=== PATIENT | male | born 1990 | race Caucasian/White ===

== ENCOUNTER 2020-04-13 12:51 | Emergency (ER) | payer MEDICAID ==
[~2020-04-13] VITALS: Ht 165.1 cm; Wt 61.4 kg
[2020-04-13] MEDS ORDERED: KLON0.5T PO (13:03)
[2020-04-13] MEDS ORDERED: MIRA3350 PO (13:03)
[2020-04-13] MEDS ORDERED: COLA100C5 PO (13:03)
[2020-04-13] MEDS ORDERED: DEPA1TAB3 PO (13:03)
[2020-04-13] MEDS ORDERED: KEPP250T5 PO (13:03)
[2020-04-13] MEDS ORDERED: TOPA1TAB PO (13:03)
[2020-04-13] MEDS ORDERED: DEPA250T32 PO (13:03)
[2020-04-13] MEDS ORDERED: KEPP1TAB PO (13:03)
[2020-04-13] MEDS ORDERED: TOPA100T12 PO (13:03)
[2020-04-13] MEDS ORDERED: SERO1TAB3 PO (13:03)
[2020-04-13] MEDS ORDERED: KLON1TAB PO (13:03)
[2020-04-13] MEDS ORDERED: TRUL3TAB PO (13:03)
[2020-04-13] MEDS ORDERED: D3 +TAB PO (13:03)
[2020-04-13] MEDS ORDERED: LIDOCAINE 2% 5ML JELLY UROJET As Ordered ONE (13:32)
[2020-04-13] MEDS ORDERED: LIDOCAINE 2% 5ML JELLY UROJET TOP ONE (13:45)
[2020-04-13 14:11] LABS: BASO % 0.3 % (0.0-1.0); EOS # 0.1 10^3/uL (0.0-0.5); EOS % 0.9 % (0.0-3.0); HEMATOCRIT 39.8 % (42.0-52.0); HEMOGLOBIN 13.2 g/dl (13.5-17.5); LYMPH # 3.6 10^3/uL (1.5-5.0); LYMPH % 53.8 % (24.0-44.0); MEAN CORPUSCULAR HEMOGLOBIN 29.7 pg (27.0-33.0); MEAN CORPUSCULAR HGB CONC 33.2 g/dl (32.0-36.5); MEAN CORPUSCULAR VOLUME 89.6 fl (80.0-96.0); MONO # 0.7 10^3/uL (0.0-0.8); MONO % 9.9 % (0.0-5.0); NEUTROPHILS # 2.3 10^3/uL (1.5-8.5); NEUTROPHILS % 34.8 % (36.0-66.0); PLATELET COUNT, AUTOMATED 112 10^3/uL (150-450); RED BLOOD COUNT 4.44 10^6/uL (4.30-6.10); WHITE BLOOD COUNT 6.7 10^3/uL (4.0-10.0)
[2020-04-13 14:31] LABS: ALBUMIN 3.3 GM/DL (3.2-5.2); ALT/SGPT 14 U/L (12-78); AMYLASE 41 U/L (25-115); BILIRUBIN,DIRECT < 0.1 MG/DL (0.0-0.2); BILIRUBIN,TOTAL 0.3 MG/DL (0.2-1.0); BLOOD UREA NITROGEN 13 MG/DL (7-18); CALCIUM LEVEL 8.6 MG/DL (8.5-10.1); CARBON DIOXIDE LEVEL 28 MEQ/L (21-32); CHLORIDE LEVEL 108 MEQ/L (98-107); CREATININE FOR GFR 0.92 MG/DL (0.70-1.30); GLOMERULAR FILTRATION RATE > 60.0 (>60); GLUCOSE, FASTING 77 MG/DL (70-100); LIPASE 207 U/L (73-393); POTASSIUM SERUM 3.4 MEQ/L (3.5-5.1); SODIUM LEVEL 142 MEQ/L (136-145); TOTAL PROTEIN 6.9 GM/DL (6.4-8.2)
--- NOTE | 2020-04-13 15:31 | REP ---
Clinical: Generalized abdominal pain Technique: Supine view of the chest with supine and cross-table lateral views of the abdomen and pelvis. Findings: Frontal view of the chest demonstrates no acute cardiopulmonary process. Supine and cross-table lateral views of the abdomen and pelvis demonstrate nonspecific bowel gas pattern without obstruction or perforation. No organomegaly. No abnormal calcifications. Skeletal structures normal for age. Impression: Nonspecific bowel gas pattern. Electronically Signed by Rajiv Mathew MD 04/13/2020 03:23 P
[2020-04-13] MEDS ORDERED: KEFL500C17 PO (15:42)
[2020-04-13] MEDS ORDERED: [UNRECOGNIZED DRUG - SUPPLY] XX (16:01)
[2020-04-13 16:08] VITALS: BP 151/86
[2020-04-13] MEDS ORDERED: GLYCERIN ADULT SUPP PR ONE (16:15)
== END 2020-04-13 16:43 | disposition home or self-care (01) ==
LOC: M ED 12:51
DX: D69.6 Thrombocytopenia, unspecified (principal); R33.8 Other retention of urine; K59.09 Other constipation; F79 Unspecified intellectual disabilities; R56.9 Unspecified convulsions; Z88.8 Allergy status to other drugs, medicaments and biological substances; Z79.899 Other long term (current) drug therapy
CPT/HCPCS: 36415; 51702; 74021; 80048; 80076; 82150; 83690; 85025; 99284; G0480